=== PATIENT | female | born 1975 | race Caucasian/White ===

== ENCOUNTER 2017-03-22 14:54 | Observation (INO) | END 2017-03-23 13:41 | disposition home or self-care (01) ==

== ENCOUNTER 2018-08-24 21:17 | Emergency (ER) | payer OTHER ==
[~2018-08-24] VITALS: Ht 165.1 cm; Wt 76.0 kg
[~2018-08-24 21:17] MED LIST: BENA10TA4 PO; CALC1TAB93 PO; ERGO500013 PO; HYDR-3601 PO; HYDR200T39 PO; LEVO50TA71 PO; MYCO500T3 PO; PRED10TA PO; WARF4TAB64 PO
[2018-08-24 21:44] VITALS: BP 125/59; PULSE 84; RESP 16; Ht 165.1 cm; Wt 76.0 kg
[2018-08-24] MEDS ORDERED: DIPHTH/TET/ACEL PERTUSS (ADULT) 0.5 ML VIAL IM* ONE (22:30)
--- NOTE | 2018-08-25 08:18 | ERD ---
ER Documentation Chief Complaint Chief Complaint PT TAKES WARFARIN AND CUT LEG AT 1700, STILL BLEEDING, AND FALL HPI This is a 43-year-old female with history of lupus and DVT, currently taking warfarin who presents with a laceration to her left damon sustained at about 5 PM today. Patient states she was cleaning when she accidentally slipped and fell backwards. Patient sustained bruising to her back and a small laceration to her left knee which she believes was from a broken piece of glass on the floor. There was no head injury or loss of consciousness. She states she sustained a small laceration to her left knee and has been bleeding since then. She denies any difficulty flexing or extending her knee. Denies any other injuries. Tetanus is not up-to-date. ROS All systems reviewed and are negative except as per history of present illness. Medications Home Meds Active Scripts Hydrocodone Bit-Acetaminophen (Hydrocodone Bit-APAP) 5-325MG Tablet, 1 TAB PO Q6H PRN for PAIN LEVEL 6-10, #60 TAB Prov:LISSETT BARRETTA 03/23/17 Reported Medications Warfarin Sodium* (Warfarin Sodium*) 4 Mg Tablet, 5 MG PO DAILY, TAB 03/23/17 Ergocalciferol (Vitamin D2) (VITAMIN D2) 50,000 Unit Capsule, 72353 UNIT PO WEEKLY, CAP 03/23/17 Calcium Carbonate/Vitamin D3 (OYSTER SHELL 500 MG + VIT D TB) 1 Each Tablet, 1 EACH PO DAILY, TAB 03/22/17 Benazepril Hcl* (Benazepril Hcl*) 10 Mg Tablet, 10 MG PO DAILY, #30 TAB 03/22/17 Hydroxychloroquine Sulfate* (Hydroxychloroquine Sulfate*) 200 Mg Tablet, 200 MG PO DAILY, TAB 03/22/17 Mycophenolate Mofetil* (Mycophenolate Mofetil*) 500 Mg Tablet, 500 MG PO BID, TAB 03/22/17 Prednisone* (Prednisone*) 10 Mg Tab, 10 MG PO DAILY, TAB 03/22/17 Levothyroxine Sodium* (Levoxyl*) 50 Mcg Tablet, 50 MCG PO BEFORE BREAKFAST, #30 TAB 03/22/17 Allergies Allergies: Coded Allergies: Penicillins (Verified Allergy, Unknown, ITCHY RASH, 03/22/17) PMhx/Soc History of Surgery: Yes (C SECTION X1) Anesthesia Reaction: No Hx Neurological Disorder: No Hx Respiratory Disorders: No Hx Cardiac Disorders: No Hx Psychiatric Problems: No Hx Miscellaneous Medical Probl: Yes (LUPUS, BLOOD CLOT AT RT LEG 1 YEAR AGO) Hx Alcohol Use: No Hx Substance Use: No Hx Tobacco Use: No Smoking Status: Never smoker Physical Exam Vitals Vital Signs Date Temp Pulse Resp B/P (MAP) Pulse Ox O2 O2 Flow FiO2 Time Delivery Rate 08/24/18 98.4 84 16 125/59 98 21:44 (81) Physical Exam Const: No acute distress Head: Atraumatic Eyes: Normal Conjunctiva ENT: Normal External Ears, Nose and Mouth. Neck: Full range of motion. No meningismus. Ext: + Small punctate laceration to left damon, actively bleeding. Patient able to flex and extend left knee without any pain. Distal pulses intact. Motor and sensation grossly intact. Right lower extremity normal. Skin: + Large ecchymosis over the left lower lumbar area. Back: No midline tenderness to palpation. No step-offs.+ Mild left paralumbar spinal tenderness palpation. Neur: Awake and alert Psych: Normal Mood and Affect Results 24 hrs Current Medications Medications Dose Sig/Becky Start Time Status Last (Trade) Ordered Route PRN Stop Time Admin Dose Reason Admin Diphtheria/ 0.5 ml ONCE ONCE 08/24/18 DC 08/24/18 Tetanus/Acell IM* 22:30 22:55 Pertussis 08/24/18 22:31 (Adacel) Procedures/[facility] LABS & DIAGNOSTIC IMAGING: PROCEDURE: XR Knee. CLINICAL INDICATION: Fall on glass, pain. TECHNIQUE: Three views of the left knee. COMPARISON: None available FINDINGS: There is no acute fracture or dislocation. The joint spaces are preserved. No joint effusion is identified. There is no radiopaque foreign body. IMPRESSION: No acute fracture or dislocation of the left knee. No radiopaque foreign body. PROCEDURES: Laceration Repair by me: Anesthesia: 1% lidocaine locally Location: Left damon Tendon/Joint/Nerves: No injury Foreign body: None detected after copious irrigation and exploration Technique: 1 5-0 simple Interrupted Sutures Complexity: No subcutaneous sutures/mucosal repair/edge excision Post Closure Length: 0.5 cm 48 hour wound check. Scar minimization instructions given. ED COURSE: The patient was given tetanus update The medication was well tolerated and the patient had market improvement in symptoms. The patient remained stable throughout ED course. MEDICAL DECISION MAKIN-year-old female with history of DVT, on warfarin presents with a punctate laceration to her left damon after falling on broken glass. X-ray is negative for foreign bodies. There is no evidence of any obvious foreign bodies on physical exam. Her bleeding was controlled after 1 figure 8 stitch as above. No evidence of compartment syndrome, neurologic injury, vascular injury, open joint, tendon laceration, or foreign body. Patient is appropriate for outpatient follow up. Recommended PCP follow-up in 48 hours, and suture removal in 5 days. Strict return precautions were discussed. PRESCRIPTIONS: None SPECIALIST FOLLOW UP RECOMMENDED: None Patient has been advised to follow up with primary care in 1-2 days. Departure Diagnosis: Primary Impression: Laceration Additional Impression: Back contusion Encounter type: initial encounter Laterality: left Qualified Codes: S20.222A - Contusion of left back wall of thorax, initial encounter Condition: Stable Patient Instructions: Laceration, All Referrals: [facility] YOU HAVE RECEIVED A MEDICAL SCREENING EXAM AND THE RESULTS INDICATE THAT YOU DO NOT HAVE A CONDITION THAT REQUIRES URGENT TREATMENT IN THE EMERGENCY DEPARTMENT. FURTHER EVALUATION AND TREATMENT OF YOUR CONDITION CAN WAIT UNTIL YOU ARE SEEN IN YOUR DOCTORS OFFICE WITHIN THE NEXT 1-2 DAYS. IT IS YOUR RESPONSIBILITY TO MAKE AN APPOINTMENT FOR FOLOW-UP CARE. IF YOU HAVE A PRIMARY DOCTOR --you should call your primary doctor and schedule an appointment IF YOU DO NOT HAVE A PRIMARY DOCTOR YOU CAN CALL OUR PHYSICIAN REFERRAL HOTLINE AT IF YOU CAN NOT AFFORD TO SEE A PHYSICIAN YOU CAN CHOSE FROM THE FOLLOWING [facility] [address] [facility]. [facility] [address] [facility]. [facility] [address] [facility] [facility] [address] [facility]. [facility] [address] [facility]. [facility]. [address] [facility] YOU HAVE RECEIVED A MEDICAL SCREENING EXAM AND THE RESULTS INDICATE THAT YOU DO NOT HAVE A CONDITION THAT REQUIRES URGENT TREATMENT IN THE EMERGENCY DEPARTMENT. FURTHER EVALUATION AND TREATMENT OF YOUR CONDITION CAN WAIT UNTIL YOU ARE SEEN IN YOUR DOCTORS OFFICE WITHIN THE NEXT 1-2 DAYS. IT IS YOUR RESPONSIBILITY TO MAKE AN APPOINTMENT FOR FOLOW-UP CARE. IF YOU HAVE A PRIMARY DOCTOR --you should call your primary doctor and schedule and appointment IF YOU DO NOT HAVE A PRIMARY DOCTOR YOU CAN CALL OUR PHYSICIAN REFERRAL HOTLINE AT . IF YOU CAN NOT AFFORD TO SEE A PHYSICIAN YOU CAN CHOSE FROM THE FOLLOWING [facility] INSTITUTIONS: [facility] [address] [place] [address] [facility] [address] [place] [address] [facility] + [facility] [address] [place] [address] Additional Instructions: Sutures can be removed in 7 days. This could be denied your doctor's office. Return here for any new or worsening symptoms. BAL PASTRANA PA-C Aug 25, 2018 08:18
== END 2018-08-25 00:15 | disposition home or self-care (01) ==
LOC: FTE 21:17
DX: S81.812A Laceration without foreign body, left lower leg, initial encounter (principal); W26.8XXA Contact with other sharp object(s), not elsewhere classified, initial encounter; Y92.9 Unspecified place or not applicable; Z23 Encounter for immunization
CPT/HCPCS: 12001; 73562; 90471; 90715; Z7502